=== PATIENT | female | born 1965 | race Native Hawaiian/Other Pacific Islander ===

== ENCOUNTER 2020-05-03 12:58 | Outpatient (CLI) | payer BC ==
[~2020-05-03] VITALS: Ht 177.8 cm; Wt 137.0 kg
== END 2020-05-03 14:09 | disposition home or self-care (01) ==
LOC: INF 12:58
DX: D50.9 Iron deficiency anemia, unspecified (principal); R53.83 Other fatigue
CPT/HCPCS: 96365; J1439

== ENCOUNTER 2020-05-13 07:58 | Outpatient (CLI) | payer BC ==
[~2020-05-13] VITALS: Ht 177.8 cm; Wt 141.5 kg
== END 2020-05-13 10:48 | disposition home or self-care (01) ==
LOC: INF 07:58
DX: D50.9 Iron deficiency anemia, unspecified (principal); R53.83 Other fatigue
CPT/HCPCS: 96365; J1439

== ENCOUNTER 2021-07-01 15:39 | Outpatient (CLI) | payer BC | END 2021-07-01 22:43 | disposition home or self-care (01) | LOC: US 15:39 | PROVIDERS: ATTEND Nurse Practitioner Family | DX: R60.0 Localized edema (principal) ==

== ENCOUNTER 2022-05-09 19:22 | Emergency (ER) | payer BC ==
[~2022-05-09] VITALS: Ht 177.8 cm; Wt 133.8 kg
[2022-05-09 19:50] LABS: PLATELET COUNT 282 K/uL (152-353)
[2022-05-09 19:59] LABS: POTASSIUM 3.3 mmol/L (3.6-5.2)
[2022-05-09 21:50] VITALS: BP 154/89; TEMP 98.6
== END 2022-05-09 21:55 | disposition home or self-care (01) ==
LOC: ED 19:22
PROVIDERS: Family Medicine
DX: T78.49XA Other allergy, initial encounter (principal); E87.6 Hypokalemia; W57.XXXA Bitten or stung by nonvenomous insect and other nonvenomous arthropods, initial encounter; Y92.096 Garden or yard of other non-institutional residence as the place of occurrence of the external cause
CPT/HCPCS: 36415; 80053; 85027; 96360; 96372; 96374; 96375; 99284; J0171; J1200; J2930

== ENCOUNTER 2022-09-08 15:15 | Outpatient (CLI) | payer BC ==
[2022-09-08 15:41] LABS: PLATELET COUNT 327 K/uL (152-353)
== END 2022-09-08 20:34 | disposition home or self-care (01) ==
LOC: LABW 15:15
PROVIDERS: ATTEND Nurse Practitioner Family
DX: M79.602 Pain in left arm (principal); R60.0 Localized edema
CPT/HCPCS: 36415; 80053; 82550; 83880; 84484; 85027; 93005

== ENCOUNTER → 2022-09-22 | Outpatient (CLI) | payer BC | LOC: RESP 09-17 09:00 | PROVIDERS: ATTEND Nurse Practitioner Family | DX: R53.83 Other fatigue (principal) ==

== ENCOUNTER 2022-09-30 08:14 | Outpatient (CLI) | payer BC ==
[~2022-09-30] VITALS: Ht 172.7 cm; Wt 133.8 kg
== END 2022-09-30 19:08 | disposition home or self-care (01) ==
LOC: NM 08:14
PROVIDERS: ATTEND Nurse Practitioner Family
DX: R53.83 Other fatigue (principal)
CPT/HCPCS: A9500; J2785

== ENCOUNTER 2022-11-05 14:34 | Outpatient (CLI) | payer BC | END 2022-11-05 19:05 | disposition home or self-care (01) | LOC: MAMMO 14:34 | PROVIDERS: ATTEND Obstetrics & Gynecology | DX: Z12.31 Encounter for screening mammogram for malignant neoplasm of breast (principal) ==

== ENCOUNTER 2022-11-12 09:05 | Outpatient (CLI) | payer BC | END 2022-11-12 21:33 | disposition home or self-care (01) | LOC: US 09:05 | PROVIDERS: ATTEND Nurse Practitioner Family | DX: R60.0 Localized edema (principal) ==

== ENCOUNTER 2022-11-13 09:00 | Outpatient (CLI) | payer BC | END 2022-11-13 22:31 | disposition home or self-care (01) | LOC: US 09:00 | PROVIDERS: ATTEND Nurse Practitioner Family | DX: R60.0 Localized edema (principal) ==

== ENCOUNTER 2023-04-22 17:15 | Outpatient (CLI) | payer BC | END 2023-04-22 19:43 | disposition home or self-care (01) | LOC: RAD 17:15 | PROVIDERS: ATTEND Orthopaedic Surgery | DX: M25.561 Pain in right knee (principal); M25.562 Pain in left knee ==